=== PATIENT | female | born 1990 | race Caucasian/White ===

== ENCOUNTER → 2016-10-14 | Outpatient (CLI) | payer OTHER ==
[~2016-10-14] MED LIST: ACHYD1T PO; ALBU8.5H2 IH; CALC-656 PO; CPR500T PO; MNTL10T PO; MULT-963 PO
--- NOTE | 2016-10-14 19:49 | Diagnostic Imaging Report ---
PROCEDURE: US OB SINGLE FETUS <14 WKS. TECHNIQUE: Multiple real-time grayscale images were obtained over the gravid uterus in various projections. INDICATION: Uncertain dates. FINDINGS: There are no previous studies available for comparison. There is a gestational sac within the uterus containing a single live fetus. heart motion is noted and a rate of 181 bpm is recorded. The crown-rump length suggests the estimated gestational age is 9 weeks 5 days +/- 1 week. There are no obvious abnormalities identified. The amniotic fluid volume is within normal limits. The placenta seems to be developing posteriorly. IMPRESSION: 1. There is single live intrauterine of approximately 9 weeks 5 days gestation +/- 1 week. The EDC is May 14, 2017. 2. There are no obvious abnormalities identified. If a more sensitive evaluation of the anatomy is desired, then a short-term (10-12 weeks) follow-up ultrasound exam should be obtained. Dictated by: Dictated on workstation # [id number]
== END ==
LOC: RAD 14:57
PROVIDERS: ATTEND Family Medicine
DX: Z36 Encounter for antenatal screening of mother (principal); Z3A.09 9 weeks gestation of pregnancy
CPT/HCPCS: 76801